=== PATIENT | male | born 2000 | race Caucasian/White ===

== ENCOUNTER 2021-07-13 12:08 | Day surgery (SDC) | payer OTHER ==
[~2021-07-13] VITALS: Ht 180.3 cm; Wt 77.3 kg
[2021-07-13] MEDS ORDERED: AMBIEN 10MG10 MG PO (13:21)
[2021-07-13 15:08] LABS: BASO % 0.1 % (0.0-2.0); EOS % 0.1 % (0-4.0); GRAN # 6.6 (1.4-6.5); GRAN % 88.5 % (42.2-75.2); HEMATOCRIT 41.5 % (42.0-52.0); HEMOGLOBIN 14.6 g/dl (13.5-18.0); LYMPH # 0.6 (1.2-3.4); LYMPH % 7.7 % (20.0-51.0); MEAN CELL VOLUME 89 fl (80.0-100.0); MEAN CORPUSCULAR HEMOGLOBIN 31 pg (27.0-31.0); MEAN CORPUSCULAR HGB CONC 35 g/dl (33.0-37.0); MONO # 0.3 (0.1-0.6); MONO % 3.5 % (1.7-9.3); PLATELET COUNT 213 K/mm3 (130-400); RED BLOOD COUNT 4.67 M/mm3 (4.20-5.60); REDCELL DISTRIBUTION WIDTH-CV 11.4 % (11.5-14.5)
[2021-07-13 15:19] LABS: ALANINE AMINOTRANSFERASE 31 U/L (4-49); ALBUMIN 4.9 gm/dL (3.5-5.0); ALKALINE PHOSPHATASE 66 U/L (50-136); ANION GAP 12 mmol/L (7-16); AST,SGOT 38 U/L (15-37); BILIRUBIN,TOTAL 0.6 mg/dL (0.0-1.0); BLOOD UREA NITROGEN 17 mg/dL (9-20); CARBON DIOXIDE 22 mmol/L (22-30); CHLORIDE 102 mmol/L (98-107); CREATININE, serum 0.95 (0.66-1.25); GLUCOSE 101 mg/dL (74-106); POTASSIUM 4.3 mmol/L (3.4-5.0); SODIUM 135 mmol/L (137-145); TOTAL PROTEIN 7.5 gm/dL (6.4-8.2)
[2021-07-13 15:23] LABS: C-REACTIVE PROTEIN < 0.5 mg/dL (0.0-0.9)
[2021-07-13] MEDS ORDERED: COLACE 100100 MG/CAP PO (17:48)
[2021-07-13] MEDS ORDERED: PERCOCET 325 MG1 TA2 PO (17:48)
[2021-07-13 18:45] VITALS: BP 138/71; PULSE 96
[2021-07-13 18:55] VITALS: BP 138/66; PULSE 83
[2021-07-13 19:10] VITALS: BP 112/59; PULSE 81
[2021-07-13 19:25] VITALS: BP 123/66; PULSE 76
--- NOTE | 2021-07-13 19:42 | NUR ---
Patient up from OR at 1840, alert and oriented x 3. Mother at bedside. Patient tolerating diet. IVF and post op VSS. Patient states pain 4/10, toradol given per orders. Incision with edges well approximated, scrotal support in place. Denies further needs at this time. Reported off to certified pathology assistant.
[2021-07-13 19:53] VITALS: BP 138/71; PULSE 93; TEMP 98.6
== END 2021-07-13 20:40 | disposition home or self-care (01) ==
LOC: COL.ER 12:08 → SDCO 17:15 → SURG 18:43 → SDCO 20:40
PROVIDERS: Nurse Practitioner
DX: N44.03 Torsion of appendix testis (principal); F41.9 Anxiety disorder, unspecified; G47.00 Insomnia, unspecified; Z79.899 Other long term (current) drug therapy
CPT/HCPCS: OP; J0690; J1100; J1885; J2270; J2405; J2704; J3010; J7030; J7120

== ENCOUNTER → 2021-08-24 | Outpatient (CLI) | payer OTHER ==
[~2021-08-24] MED LIST: AMBIEN 10MG10 MG PO; COLACE 100100 MG/CAP PO; PERCOCET 325 MG1 TA2 PO
== END ==
LOC: COL.RAD 13:51
DX: N44.00 Torsion of testis, unspecified (principal); N50.82 Scrotal pain
CPT/HCPCS: Q9967